=== PATIENT | male | born 1970 | race Caucasian/White ===

== ENCOUNTER 2018-05-14 15:49 | Emergency (ER) | payer OTHER, MEDICAID ==
[~2018-05-14] VITALS: Ht 182.9 cm; Wt 80.0 kg
[~2018-05-14 15:49] MED LIST: HYDR-523 PO
[2018-05-14 16:45] VITALS: BP 158/112
[2018-05-14] MEDS ORDERED: HYDROCODONE/ACETAMINOPHEN 5/325MG TABLET PO ONE (16:45)
[2018-05-14] MEDS ORDERED: TAMSULOSIN HCL 0.4MG SR CAPSULE PO ONE (16:45)
== END 2018-05-14 18:31 | disposition home or self-care (01) ==
LOC: ER 15:49
DX: N31.9 Neuromuscular dysfunction of bladder, unspecified (principal); R33.9 Retention of urine, unspecified
CPT/HCPCS: 51702; 99284